=== PATIENT | male | born 1980 | race Caucasian/White ===

== ENCOUNTER → 2022-12-14 | Emergency (ER) | payer OTHER ==
[~2022-12-14] VITALS: Ht 177.8 cm; Wt 77.1 kg
[~2022-12-14] MED LIST: LORazepam 1 MG TABLET PO ONE; PHENYTOIN 100 MG CAPSULE PO ONE; levETIRAcetam 500 MG TABLET PO ONE
[2022-12-14 16:21] VITALS: BP_SYST 156
--- NOTE | 2022-12-14 16:21 | NUR ---
Placed in room 01 . Placed on engine monitor, blood pressure machine and pulse oximeter. To gown for exam. Side rails up. Report given to KENROY Sotomayor
--- NOTE | 2022-12-14 16:25 | NUR ---
PT BIBA AWAKE AND ALERT AOX4, NO SOB. PT WAS BROUGHT IN FOR MULTIPLE SEIZURES. PARAMEDICS STATED HE HAD MULTIPLE EPISODS OF SHAKING, BUT DIDNT LOOK LIKE SEIZURES. UPON ARRIVAL PT WAS SHAKING. VSS.
--- NOTE | 2022-12-14 16:30 | NUR ---
MD DR GOLDBERG AT BEDSIDE
[2022-12-14 16:58] LABS: HEMATOCRIT 47.3 % (36-54); HEMOGLOBIN 15.6 g/dL (14.0-18.0); MEAN CORPUSCULAR HEMOGLOBIN 33 pg (27-31); MEAN CORPUSCULAR HGB CONC 33 % (32-36); MEAN CORPUSCULAR VOLUME 101 fL (79.0-98.0); PLATELET COUNT (AUTO) 186 K/uL (130-430); RED BLOOD CELL COUNT(AUTO) 4.71 MIL/uL (4.2-6.2); WHITE BLOOD COUNT (AUTO) 9.4 K/uL (4.8-10.8)
[2022-12-14 17:06] LABS: ANION GAP 16 (5-15); CALCIUM 8.6 mg/dL (8.4-11.0); CHLORIDE 108 mmol/L (98-107); CREATININE 1.17 mg/dL (0.55-1.30); GLUCOSE 96 mg/dL (70-99); UREA NITROGEN, BLOOD 16 mg/dL (8-21)
[2022-12-14 17:10] LABS: ALANINE AMINOTRANSFERASE 187 U/L (12-78); ALBUMIN 3.7 g/dL (3.4-4.8); ASPARTATE AMINOTRANSFERASE 96 U/L (10-37); PHENYTOIN (DILANTIN) < 0.5 ug/mL (10.0-20.0); TOTAL BILIRUBIN 0.2 mg/dL (0.0-1.0)
[2022-12-14 17:11] LABS: GFR AFRICAN AMERICAN 88 mL/min (>90)
--- NOTE | 2022-12-14 17:30 | NUR ---
Pt lit a cigarette in bed and used the urinal for cristy tray. Urinal began to smolder plastic fumes and pt cigarette and psychologist counseling confiscated until departure.
[2022-12-14 17:34] LABS: ACETONE, SERUM NEGATIVE (NEGATIVE)
[2022-12-14 17:40] LABS: ALCOHOL, BLOOD 304 mg/dL (<10)
[2022-12-14 17:55] LABS: BAND % (MANUAL) 2 % (0-6); BASOPHILS % (MANUAL) 0 % (0-2); EOSINOPHILS % (MANUAL) 6 % (0-7); LYMPHOCYTES % (MANUAL) 61 % (20-46); MONOCYTES % (MANUAL) 4 % (0-11)
== END | disposition left against medical advice (07) ==
LOC: SED 16:10
DX: R56.9 Unspecified convulsions (principal); F10.20 Alcohol dependence, uncomplicated; F17.200 Nicotine dependence, unspecified, uncomplicated; Z79.899 Other long term (current) drug therapy; Y90.6 Blood alcohol level of 120-199 mg/100 ml
CPT/HCPCS: 99283; 85027; 80053; 82009; 80185; 85007; 36415; 83605; G0482

== ENCOUNTER 2023-06-10 13:44 | Emergency (ER) | payer MEDICAID, OTHER ==
[~2023-06-10] VITALS: Ht 177.8 cm; Wt 77.1 kg
[2023-06-10 14:25] VITALS: BP_SYST 134; PULSE 86; RESP 20; TEMP 98.2; O2SAT 96
[2023-06-10] MEDS ORDERED: HYDROcodone/ACETAMIN 5-325 MG TAB (NORCO/ VICODIN) PO ONE (16:15)
[2023-06-10] MEDS ORDERED: KETOROLAC TROMETHAMINE 30 MG VIAL IM ONE (17:30)
[2023-06-10] MEDS ORDERED: HYDR-3927 PO (18:48)
[2023-06-10 20:49] VITALS: BP_SYST 128; PULSE 82; RESP 20; TEMP 98.2; O2SAT 95
== END 2023-06-10 19:13 | disposition home or self-care (01) ==
LOC: SED 13:44
DX: K40.90 Unilateral inguinal hernia, without obstruction or gangrene, not specified as recurrent (principal); R10.31 Right lower quadrant pain; R11.10 Vomiting, unspecified; R19.7 Diarrhea, unspecified; Z79.899 Other long term (current) drug therapy
CPT/HCPCS: 99285; 74176; 76376; 96372; J1885

== ENCOUNTER 2023-07-20 11:31 | Emergency (ER) | payer MEDICAID ==
[~2023-07-20] VITALS: Ht 177.8 cm; Wt 80.7 kg
[~2023-07-20 11:31] MED LIST changes: +HYDR-3927 PO; -LORazepam 1 MG TABLET PO ONE; -PHENYTOIN 100 MG CAPSULE PO ONE; -levETIRAcetam 500 MG TABLET PO ONE
[2023-07-20 11:44] VITALS: BP_SYST 138; PULSE 88; RESP 16; TEMP 98.1; O2SAT 96
[2023-07-20] MEDS ORDERED: KETOROLAC TROMETHAMINE 30 MG VIAL IVP ONE (12:00)
[2023-07-20] MEDS ORDERED: HYDROcodone/ACETAMIN 5-325 MG TAB (NORCO/ VICODIN) PO ONE (12:00)
[2023-07-20 12:21] LABS: CALCIUM 7.6 mg/dL (8.4-11.0); CREATININE 1.18 mg/dL (0.55-1.30); POTASSIUM 3.8 mmol/L (3.5-5.1)
[2023-07-20 12:23] LABS: BASOPHILS % (AUTO) 0.3 % (0.0-2.0); EOSINOPHILS # (AUTO) 0.1 K/uL (0.0-0.4); EOSINOPHILS % (AUTO) 2.7 % (0.0-4.0); HEMATOCRIT 35.3 % (36-54); HEMOGLOBIN 11.9 g/dL (14.0-18.0); LYMPHOCYTES % (AUTO) 43.3 % (20.5-51.5); MEAN CORPUSCULAR HEMOGLOBIN 34 pg (27-31); MEAN CORPUSCULAR HGB CONC 34 % (32-36); MEAN CORPUSCULAR VOLUME 101 fL (79.0-98.0); MONOCYTES # (AUTO) 0.5 K/uL (0.0-1.0); MONOCYTES % (AUTO) 10.8 % (1.7-9.3); NEUTROPHILS % (AUTO) 42.9 % (40.0-70.0); PLATELET COUNT (AUTO) 168 K/uL (130-430); RED BLOOD CELL COUNT(AUTO) 3.48 MIL/uL (4.2-6.2); RED CELL DISTRIBUTION WIDTH 14.7 % (9.0-15.0); WHITE BLOOD COUNT (AUTO) 4.7 K/uL (4.8-10.8)
[2023-07-20 12:26] LABS: TOTAL BILIRUBIN 0.2 mg/dL (0.0-1.0); TOTAL PROTEIN, SERUM 6.6 g/dL (6.4-8.3)
[2023-07-20 12:52] LABS: BILIRUBIN,URINE NEGATIVE (NEGATIVE); BLOOD, URINE NEGATIVE (NEGATIVE); CLARITY/URINE CLEAR (CLEAR); COLOR,URINE YELLOW (YELLOW); GLUCOSE,URINE NEGATIVE (NEGATIVE); KETONES,URINE NEGATIVE (NEGATIVE); LEUKOCYTE ESTERASE ,URINE NEGATIVE (NEGATIVE); NITRITE, URINE NEGATIVE (NEGATIVE); PROTEIN URINE NEGATIVE (NEGATIVE); UROBILINOGEN,URINE 0.2 (0.2-1.0)
[2023-07-20] MEDS ORDERED: CALCIUM GLUCONATE 500 MG TAB Non-Formulary PO ONE (13:00)
[2023-07-20 13:08] LABS: BARBITURATE, URINE NEGATIVE (NEG <=200); BENZODIAZEPINE, URINE NEGATIVE (NEG <=150); CANNABINOID, URINE POSITIVE (NEG <=50); COCAINE, URINE NEGATIVE (NEG <=150); METHAMPHETAMINES SCREEN,URINE NEGATIVE (NEG <=500); OPIATE, URINE NEGATIVE (NEG <=100); PHENCYCLIDINE SCREEN,URINE NEGATIVE (NEG <=25); UR TRICYCLIC ANTIDEPRESSANTS NEGATIVE (NEG <=300); URINE AMPHETAMINE NEGATIVE (NEG <=500); URINE METHADONE NEGATIVE (NEG <=200); URINE OXYCODONE SCREEN NEGATIVE (NEG <=100); URINE PROPOXYPHENE SCREEN NEGATIVE (NEG <=300)
[2023-07-20] MEDS ORDERED: HYDR-3917 PO (13:57)
[2023-07-20 14:20] VITALS: BP_SYST 137; PULSE 78; RESP 18; TEMP 98; O2SAT 94
== END 2023-07-20 14:24 | disposition home or self-care (01) ==
LOC: SED 11:31
DX: K40.90 Unilateral inguinal hernia, without obstruction or gangrene, not specified as recurrent (principal); Z79.899 Other long term (current) drug therapy
CPT/HCPCS: 99285; 74176; 96374; 80307; 80053; 83690; 85025; 36415; 76376; 81003; J1885

== ENCOUNTER 2023-08-06 15:28 | Emergency (ER) | payer MEDICAID ==
[~2023-08-06] VITALS: Ht 177.8 cm; Wt 68.0 kg
[~2023-08-06 15:28] MED LIST changes: +HYDR-3917 PO
[2023-08-06 15:30] VITALS: BP_SYST 143; PULSE 107; RESP 20; TEMP 97.8; O2SAT 94
[2023-08-06] MEDS ORDERED: levETIRAcetam 1,000 MG IV BAG 100 ML IV ONE (16:00)
[2023-08-06] MEDS ORDERED: KETOROLAC TROMETHAMINE 30 MG VIAL IVP ONE (16:00)
[2023-08-06] MEDS ORDERED: NACL 0.9% 1,000 ML IV ONE (16:00)
[2023-08-06 16:39] LABS: BASOPHILS % (AUTO) 0.3 % (0.0-2.0); CALCIUM 8.8 mg/dL (8.4-11.0); CREATININE 1.23 mg/dL (0.55-1.30); EOSINOPHILS # (AUTO) 0.2 K/uL (0.0-0.4); EOSINOPHILS % (AUTO) 1.9 % (0.0-4.0); HEMATOCRIT 44.7 % (36-54); HEMOGLOBIN 14.5 g/dL (14.0-18.0); LYMPHOCYTES # (AUTO) 3.9 K/uL (1.0-5.5); LYMPHOCYTES % (AUTO) 41.2 % (20.5-51.5); MEAN CORPUSCULAR HEMOGLOBIN 33 pg (27-31); MEAN CORPUSCULAR HGB CONC 32 % (32-36); MEAN CORPUSCULAR VOLUME 101 fL (79.0-98.0); MONOCYTES # (AUTO) 0.6 K/uL (0.0-1.0); MONOCYTES % (AUTO) 6.8 % (1.7-9.3); NEUTROPHILS # (AUTO) 4.7 K/uL (1.8-7.7); NEUTROPHILS % (AUTO) 49.8 % (40.0-70.0); PLATELET COUNT (AUTO) 179 K/uL (130-430); POTASSIUM 3.4 mmol/L (3.5-5.1); RED BLOOD CELL COUNT(AUTO) 4.41 MIL/uL (4.2-6.2); RED CELL DISTRIBUTION WIDTH 14.8 % (9.0-15.0); WHITE BLOOD COUNT (AUTO) 9.4 K/uL (4.8-10.8)
[2023-08-06 16:43] LABS: ALBUMIN 3.6 g/dL (3.4-4.8); TOTAL BILIRUBIN 0.3 mg/dL (0.0-1.0); TOTAL PROTEIN, SERUM 7.5 g/dL (6.4-8.3)
[2023-08-06] MEDS ORDERED: LEVE750T4 PO (17:53)
[2023-08-06] MEDS ORDERED: IBUP-1971 PO (17:53)
[2023-08-06 18:21] VITALS: BP_SYST 143; PULSE 107; RESP 20; TEMP 97.8; O2SAT 94
== END 2023-08-06 18:21 | disposition home or self-care (01) ==
LOC: SED 15:28
DX: S62.366A Nondisplaced fracture of neck of fifth metacarpal bone, right hand, initial encounter for closed fracture (principal); G40.909 Epilepsy, unspecified, not intractable, without status epilepticus; Z91.148 Patient's other noncompliance with medication regimen for other reason; Z79.899 Other long term (current) drug therapy; X58.XXXA Exposure to other specified factors, initial encounter; Y93.89 Activity, other specified; Y92.89 Other specified places as the place of occurrence of the external cause; Y99.8 Other external cause status
CPT/HCPCS: 99285; 96365; 71045; 96361; 96375; 80053; 83690; 83735; 85025; 36415; 93005; 73130; J1885; J1953; J7030

== ENCOUNTER 2023-09-22 17:40 | Emergency (ER) | payer MEDICAID ==
[~2023-09-22] VITALS: Ht 180.3 cm; Wt 64.0 kg
[~2023-09-22 17:40] MED LIST changes: +IBUP-1971 PO; +LEVE750T4 PO
[2023-09-22 17:54] VITALS: BP_SYST 129; PULSE 101; RESP 22; TEMP 98.3; O2SAT 98
[2023-09-22] MEDS ORDERED: HYDROcodone/ACETAMIN 5-325 MG TAB (NORCO/ VICODIN) PO ONE (18:15)
[2023-09-22] MEDS ORDERED: HYDR-3917 PO (19:53)
[2023-09-22 20:45] VITALS: BP_SYST 141; PULSE 88; RESP 20; TEMP 98.7; O2SAT 95
== END 2023-09-22 20:48 | disposition home or self-care (01) ==
LOC: SED 17:40
DX: S42.402A Unspecified fracture of lower end of left humerus, initial encounter for closed fracture (principal); Z79.899 Other long term (current) drug therapy; W01.198A Fall on same level from slipping, tripping and stumbling with subsequent striking against other object, initial encounter; Y93.89 Activity, other specified; Y92.89 Other specified places as the place of occurrence of the external cause; Y99.8 Other external cause status
CPT/HCPCS: 70150-TC; 99284

== ENCOUNTER 2024-06-10 19:13 | Emergency (ER) | payer MEDICAID ==
[~2024-06-10] VITALS: Ht 177.8 cm; Wt 63.5 kg
[~2024-06-10 19:13] MED LIST changes: +ACYC-133 PO; +DULO20CA PO; -HYDR-3917 PO; -HYDR-3927 PO; -IBUP-1971 PO; +IPRA3AMP9 INH; +LEVE750T12 PO; -LEVE750T4 PO; +MIRT-147 PO; +RISP1TAB7 PO; +TRAZ-250 PO
[2024-06-10 19:29] VITALS: BP_SYST 132; PULSE 88; RESP 20; TEMP 98.3; O2SAT 98
[2024-06-10] MEDS ORDERED: HYDR-3927 PO (20:44)
[2024-06-10] MEDS ORDERED: NIRM1TAB9 PO (20:44)
[2024-06-10] MEDS ORDERED: GUAI5SYR PO (20:44)
[2024-06-10 20:50] VITALS: BP_SYST 132; PULSE 88; RESP 20; TEMP 98.3; O2SAT 98
[2024-06-10] MEDS: HYDROcodone/ACETAMIN 5-325 MG TAB (NORCO/ VICODIN) PO ONE (21:18)
== END 2024-06-10 20:50 | disposition home or self-care (01) ==
LOC: SED 19:13
DX: U07.1 COVID-19 (principal); J45.909 Unspecified asthma, uncomplicated; Z79.899 Other long term (current) drug therapy; Z79.2 Long term (current) use of antibiotics
CPT/HCPCS: 99283

== ENCOUNTER 2024-07-12 15:57 | Inpatient (IN) | payer MEDICAID ==
[~2024-07-12] VITALS: Ht 177.8 cm; Wt 58.1 kg
[~2024-07-12 15:57] MED LIST changes: +GUAI5SYR PO; +HYDR-3927 PO; +NIRM1TAB9 PO
[2024-07-12 16:00] VITALS: BP_SYST 130; PULSE 93; RESP 20; TEMP 96.9; O2SAT 97
[2024-07-12] MEDS: ALBUTEROL SULFATE 0.083% 2.5 MG/3 ML VIAL.NEB INH ONE (16:35)
[2024-07-12] MEDS: IPRATROPIUM BROM 0.5 MG/2.5 ML VIAL.NEB (ATROVENT) INH ONE (16:35)
[2024-07-12 17:25] LABS: EOSINOPHILS # (AUTO) 0.1 K/uL (0.0-0.4); HEMATOCRIT 46.4 % (36-54); MONOCYTES # (AUTO) 0.4 K/uL (0.0-1.0); MONOCYTES % (AUTO) 5.4 % (1.7-9.3); NEUTROPHILS # (AUTO) 3.7 K/uL (1.8-7.7)
[2024-07-12] MEDS: levETIRAcetam 1,500 MG in NS 85 ML IV ONE (17:30)
[2024-07-12 17:31] LABS: PROTHROMBIN TIME 10.4 SECS (9.5-12.5)
[2024-07-12] MEDS: NS 1000 ML IV.SOLN IV ONE (17:40)
[2024-07-12 17:53] LABS: BASOPHILS % (AUTO) 0.3 % (0.0-2.0); EOSINOPHILS % (AUTO) 1.2 % (0.0-4.0); HEMOGLOBIN 15.9 g/dL (14.0-18.0); LYMPHOCYTES # (AUTO) 3.3 K/uL (1.0-5.5); LYMPHOCYTES % (AUTO) 43.9 % (20.5-51.5); MEAN CORPUSCULAR HEMOGLOBIN 36 pg (27-31); MEAN CORPUSCULAR HGB CONC 34 % (32-36); MEAN CORPUSCULAR VOLUME 106 fL (79.0-98.0); NEUTROPHILS % (AUTO) 49.2 % (40.0-70.0); RED BLOOD CELL COUNT(AUTO) 4.39 MIL/uL (4.2-6.2); RED CELL DISTRIBUTION WIDTH 15.8 % (9.0-15.0); WHITE BLOOD COUNT (AUTO) 7.6 K/uL (4.8-10.8)
[2024-07-12 18:29] LABS: ALANINE AMINOTRANSFERASE 108 U/L (12-78); ALBUMIN 3.5 g/dL (3.4-4.8); ANION GAP 19 (5-15); ASPARTATE AMINOTRANSFERASE 143 U/L (10-37); CALCIUM 9.6 mg/dL (8.4-11.0); CARBON DIOXIDE 18 mmol/L (23-29); CHLORIDE 102 mmol/L (98-107); CREATININE 1.33 mg/dL (0.55-1.30); GFR AFRICAN AMERICAN 75 mL/min (>90); GLUCOSE 133 mg/dL (74-106); POTASSIUM 3.3 mmol/L (3.5-5.1); SODIUM SERUM 139 mmol/L (136-145); TOTAL BILIRUBIN 0.5 mg/dL (0.0-1.0); TOTAL PROTEIN, SERUM 7.7 g/dL (6.4-8.3); UREA NITROGEN, BLOOD 12 mg/dL (8-21)
[2024-07-12 18:32] LABS: GFR NON AFRICAN-AMERICAN 62 mL/min (>90)
[2024-07-12 18:39] LABS: ALCOHOL, BLOOD 387 mg/dL (<10); BILIRUBIN,DIRECT 0.2 mg/dL (0.0-0.3); SALICYLATE 5 mg/dL (3-30)
[2024-07-12] MEDS: MORPHINE 4 MG INJ. 4 MG/ML VIAL IVP ONE (18:42)
[2024-07-12 19:07] LABS: ACETAMINOPHEN 11 ug/mL (1-30)
[2024-07-12 19:08] LABS: ANISOCYTOSIS 1+
[2024-07-12 19:09] LABS: PLATELET COUNT (AUTO) 93 K/uL (130-430)
[2024-07-12] MEDS ORDERED: MUPIROCIN 2% TOPICAL OINTMENT 22 GM NS PRN ×2 (20:15→22:00)
[2024-07-12] MEDS ORDERED: MORPHINE 2 MG/ML INJ. SYRINGE IVP PRN (20:15)
[2024-07-12 20:43] LABS: BILIRUBIN,URINE NEGATIVE (NEGATIVE); CLARITY/URINE CLEAR (CLEAR); COLOR,URINE YELLOW (YELLOW); GLUCOSE,URINE NEGATIVE (NEGATIVE); KETONES,URINE NEGATIVE (NEGATIVE); LEUKOCYTE ESTERASE ,URINE NEGATIVE (NEGATIVE); NITRITE, URINE NEGATIVE (NEGATIVE); PROTEIN URINE 2+ (NEGATIVE); UROBILINOGEN,URINE 0.2 (0.2-1.0)
[2024-07-12] MEDS ORDERED: ACETAMINOPHEN 325 MG TABLET PO PRN (20:45)
[2024-07-12 21:14] LABS: BLOOD, URINE TRACE (NEGATIVE)
[2024-07-12 21:32] LABS: BACTERIA,URINE FEW /HPF (None Seen)
[2024-07-12] MEDS: levETIRAcetam 500 MG TABLET PO SCH (21:32)
[2024-07-12] MEDS: POTASSIUM CHLORIDE 20 MEQ TABLET.ER PO PRN (21:41)
[2024-07-12] MEDS: ACETAMINOPHEN 325 MG TABLET PO PRN (21:46)
[2024-07-12 22:16] LABS: BARBITURATE, URINE NEGATIVE (NEG <=200); BENZODIAZEPINE, URINE NEGATIVE (NEG <=150); COCAINE, URINE NEGATIVE (NEG <=150); METHAMPHETAMINES SCREEN,URINE POSITIVE (NEG <=500); OPIATE, URINE POSITIVE (NEG <=100); URINE AMPHETAMINE NEGATIVE (NEG <=500); URINE METHADONE NEGATIVE (NEG <=200)
[2024-07-12 22:17] LABS: CANNABINOID, URINE POSITIVE (NEG <=50); PHENCYCLIDINE SCREEN,URINE NEGATIVE (NEG <=25); UR TRICYCLIC ANTIDEPRESSANTS NEGATIVE (NEG <=300); URINE OXYCODONE SCREEN NEGATIVE (NEG <=100)
[2024-07-12] MEDS: traZODone HCL 50 MG TABLET (DESYREL) PO ONE (23:15)
[2024-07-12 23:43] VITALS: BP_SYST 120; PULSE 64; RESP 20; TEMP 98.3
[2024-07-13] MEDS: MORPHINE 2 MG/ML INJ. SYRINGE IVP PRN (00:25)
[2024-07-13] MEDS: ONDANSETRON HCL 4 MG/2 ML VIAL IVP PRN (00:30)
[2024-07-13] MEDS: LORazepam 2 MG/ML VIAL IVP PRN (02:30)
[2024-07-13 07:22] LABS: BASOPHILS % (AUTO) 0.3 % (0.0-2.0); EOSINOPHILS # (AUTO) 0.1 K/uL (0.0-0.4); EOSINOPHILS % (AUTO) 1.9 % (0.0-4.0); HEMATOCRIT 39.3 % (36-54); HEMOGLOBIN 13.3 g/dL (14.0-18.0); LYMPHOCYTES # (AUTO) 1.4 K/uL (1.0-5.5); LYMPHOCYTES % (AUTO) 37.9 % (20.5-51.5); MEAN CORPUSCULAR HEMOGLOBIN 36 pg (27-31); MEAN CORPUSCULAR HGB CONC 34 % (32-36); MEAN CORPUSCULAR VOLUME 107 fL (79.0-98.0); MONOCYTES # (AUTO) 0.3 K/uL (0.0-1.0); MONOCYTES % (AUTO) 6.7 % (1.7-9.3); NEUTROPHILS % (AUTO) 53.2 % (40.0-70.0); PLATELET COUNT (AUTO) 59 K/uL (130-430); RED BLOOD CELL COUNT(AUTO) 3.68 MIL/uL (4.2-6.2); RED CELL DISTRIBUTION WIDTH 15.3 % (9.0-15.0); WHITE BLOOD COUNT (AUTO) 3.8 K/uL (4.8-10.8)
[2024-07-13 07:34] VITALS: BP_SYST 142; PULSE 92; RESP 13; TEMP 99
[2024-07-13 07:51] LABS: ANION GAP 13 (5-15); CALCIUM 8.2 mg/dL (8.4-11.0); CARBON DIOXIDE 21 mmol/L (23-29); CHLORIDE 105 mmol/L (98-107); GFR AFRICAN AMERICAN 94 mL/min (>90); GLUCOSE 80 mg/dL (74-106); POTASSIUM 3.3 mmol/L (3.5-5.1); SODIUM SERUM 139 mmol/L (136-145); UREA NITROGEN, BLOOD 8 mg/dL (8-21)
[2024-07-13 08:00] VITALS: O2SAT 93
[2024-07-13 08:08] LABS: GFR NON AFRICAN-AMERICAN 78 mL/min (>90)
[2024-07-13] MEDS: NEPHROVITE, (FOLIC ACID/VITAMIN B COMP W-C 1 TAB) PO SCH (08:12)
[2024-07-13] MEDS: DOCUSATE SODIUM 100 MG CAPSULE PO PRN (08:12)
[2024-07-13] MEDS: MAGNESIUM SULFATE 50 ML IV PRN (08:13)
[2024-07-13] MEDS: chlordiazePOXIDE HCL 25 MG CAPSULE PO PRN (08:33)
[2024-07-13 12:11] VITALS: BP_SYST 110; BP_SYST 132; PULSE 65; RESP 17; RESP 18; TEMP 98.1; O2SAT 92; O2SAT 98
[2024-07-13] MEDS: HYDROcodone/ACETAMIN 7.5-325 MG TAB PO ONE (13:21)
[2024-07-13] MEDS ORDERED: chlordiazePOXIDE HCL 25 MG CAPSULE PO SCH (15:00)
[2024-07-13] MEDS: chlordiazePOXIDE HCL 25 MG CAPSULE PO ONE (16:09)
[2024-07-13 16:15] VITALS: BP_SYST 117; PULSE 62; RESP 18; TEMP 97.3; O2SAT 95
[2024-07-13 20:00] VITALS: O2SAT 95
[2024-07-13] MEDS: chlordiazePOXIDE HCL 25 MG CAPSULE PO SCH (20:50)
[2024-07-13 20:54] VITALS: BP_SYST 140; RESP 20; TEMP 97; O2SAT 96
[2024-07-14 01:33] VITALS: RESP 20; TEMP 98; O2SAT 97
[2024-07-14 06:21] LABS: BASOPHILS % (AUTO) 0.3 % (0.0-2.0); EOSINOPHILS # (AUTO) 0.2 K/uL (0.0-0.4); EOSINOPHILS % (AUTO) 3.6 % (0.0-4.0); HEMATOCRIT 44.6 % (36-54); HEMOGLOBIN 15.2 g/dL (14.0-18.0); LYMPHOCYTES # (AUTO) 1.3 K/uL (1.0-5.5); MEAN CORPUSCULAR HEMOGLOBIN 36 pg (27-31); MEAN CORPUSCULAR HGB CONC 34 % (32-36); MEAN CORPUSCULAR VOLUME 107 fL (79.0-98.0); MONOCYTES # (AUTO) 0.3 K/uL (0.0-1.0); MONOCYTES % (AUTO) 6.4 % (1.7-9.3); NEUTROPHILS # (AUTO) 2.5 K/uL (1.8-7.7); NEUTROPHILS % (AUTO) 59.7 % (40.0-70.0); PLATELET COUNT (AUTO) 54 K/uL (130-430); RED BLOOD CELL COUNT(AUTO) 4.18 MIL/uL (4.2-6.2); RED CELL DISTRIBUTION WIDTH 15.5 % (9.0-15.0); WHITE BLOOD COUNT (AUTO) 4.2 K/uL (4.8-10.8)
[2024-07-14 06:49] LABS: CALCIUM 9.2 mg/dL (8.4-11.0); CREATININE 0.96 mg/dL (0.55-1.30); POTASSIUM 4.5 mmol/L (3.5-5.1)
[2024-07-14 07:53] VITALS: BP_SYST 140; PULSE 63; RESP 18; TEMP 98.1; O2SAT 99
[2024-07-14 09:16] VITALS: O2SAT 99
[2024-07-14 12:31] VITALS: BP_SYST 140; PULSE 72; RESP 18; TEMP 98.7; O2SAT 98
[2024-07-14 16:57] VITALS: BP_SYST 122; PULSE 79; RESP 18; TEMP 98; O2SAT 96
[2024-07-14 20:00] VITALS: BP_SYST 133; PULSE 70; RESP 18; TEMP 98.5
== END 2024-07-14 21:15 | disposition left against medical advice (07) | DRG 53 ==
LOC: SED 15:57 → STU 20:11
PROVIDERS: ADMIT Family Medicine; ATTEND Family Medicine
PROC: 4A00X4Z Measurement of Central Nervous Electrical Activity, External Approach (ICD-10-PCS; principal; 2024-07-13)
DX: G40.909 Epilepsy, unspecified, not intractable, without status epilepticus (principal); N17.0 Acute kidney failure with tubular necrosis; R65.11 Systemic inflammatory response syndrome (SIRS) of non-infectious origin with acute organ dysfunction; F10.231 Alcohol dependence with withdrawal delirium; E83.42 Hypomagnesemia; R74.01 Elevation of levels of liver transaminase levels; M81.0 Age-related osteoporosis without current pathological fracture; Z53.29 Procedure and treatment not carried out because of patient's decision for other reasons; E87.6 Hypokalemia; Z79.899 Other long term (current) drug therapy; Z88.8 Allergy status to other drugs, medicaments and biological substances
CPT/HCPCS: 36415; 70450-TC; 71045; 80048; 80076; 80307; 81000; 81001; 81015; 83605; 83735; 84484; 85025; 85610; 85730; 87040; 87086; 93005; 94640; 94760; 95816; 99285; G0378; G0480; G0481; G0482; J1953; J2060; J2270; J2405; J3475